=== PATIENT | male | born 1950 | race African-American/Black ===

== ENCOUNTER 2017-06-07 08:12 | Emergency (ER) | payer OTHER, BC ==
[2017-06-07] MEDS ORDERED: ACETAMINOPHEN 325 MG TABLET PO ONE (08:17)
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
[2017-06-07] MEDS ORDERED: HYDROCODONE/ACETAMINOPHEN 5-325 MG TABLET PO ONE (09:24)
[2017-06-07] MEDS ORDERED: OXYCODONE HCL IR 5 MG TABLET PO ONE (09:28)
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
[2017-06-07 10:19] VITALS: BP 134/66
== END 2017-06-07 10:28 | disposition home or self-care (01) ==
LOC: ER 08:12
PROC: 2W3DX1Z Immobilization of Left Lower Arm using Splint (ICD-10-PCS; principal; 2017-06-07)
DX: S52.572A Other intraarticular fracture of lower end of left radius, initial encounter for closed fracture (principal); M79.1 Myalgia; E11.9 Type 2 diabetes mellitus without complications; Z87.442 Personal history of urinary calculi; V89.2XXA Person injured in unspecified motor-vehicle accident, traffic, initial encounter
CPT/HCPCS: 99283

== ENCOUNTER 2018-07-03 04:09 | Emergency (ER) | payer BC ==
--- NOTE | 2018-07-03 05:21 | ER Document Report ---
ED General Pain - General Chief Complaint: Low Back Pain Stated Complaint: BACK PAIN Time Seen by Provider: 07/03/18 05:07 Primary Care Provider: MARIA GUADALUPE WOLF MD [Primary Care Provider] - Follow up as needed Mode of Arrival: Ambulatory Information source: Patient TRAVEL OUTSIDE OF THE [place] IN LAST 30 DAYS: No - HPI Notes: Patient is a 68-year-old male that presents to the emergency department with chief complaint of right hip pain. Patient reports that at times the right hip pain radiates down into his toes. Sometimes his toes will go numb and it "feels like needles." Patient reports that symptoms have been intermittent over the past 1-2 weeks and worse yesterday. Patient denies recent injury or fall. Patient reports normal urination and bowel movements. Patient reports the pain as a sharp and sometimes achy feeling. Patient states nothing makes the pain better or worse. Patient has attempted to take an [id number] pain medication called Max without relief. - Related Data Allergies/Adverse Reactions: No Known Allergies Allergy (Verified 09/19/14 11:32) Past Medical History - General Information source: Patient - Social History Smoking Status: Never Smoker Frequency of alcohol use: Daily Family History: Reviewed & Not Pertinent Patient has suicidal ideation: No Patient has homicidal ideation: No - Past Medical History Cardiac Medical History: Reports: Hx Hypertension Pulmonary Medical History: Reports: None EENT Medical History: Reports: None Neurological Medical History: Reports: None Endocrine Medical History: Reports: Hx Diabetes Mellitus Type 2 Renal/ Medical History: Reports: Hx Benign Prostatic Hyperplasia, Hx Kidney Stones. Denies: Hx Peritoneal Dialysis Malignancy Medical History: Reports None GI Medical History: Reports: None Skin Medical History: Reports None Traumatic Medical History: Reports: None Past Surgical History: Reports: Hx Orthopedic Surgery - Lft Knee Repair; Lft Shoulder Repair. - Immunizations Hx Diphtheria, Pertussis, Tetanus Vaccination: Yes Review of Systems - Review of Systems Constitutional: See HPI EENT: No symptoms reported Cardiovascular: No symptoms reported Respiratory: No symptoms reported Gastrointestinal: No symptoms reported Genitourinary: No symptoms reported Male Genitourinary: No symptoms reported Musculoskeletal: See HPI Skin: No symptoms reported Hematologic/Lymphatic: No symptoms reported Neurological/Psychological: No symptoms reported Physical Exam - Vital signs Vitals: Temp Pulse Resp BP Pulse Ox 98.6 F 83 18 171/78 H 98 07/03/18 04:10 07/03/18 04:10 07/03/18 04:10 07/03/18 04:10 07/03/18 04:10 Interpretation: Hypertensive - General General appearance: Appears well, Alert In distress: Mild - Respiratory Respiratory status: No respiratory distress Chest status: Nontender Breath sounds: Normal Chest palpation: Normal - Cardiovascular Rhythm: Regular Heart sounds: Normal auscultation, S1 appreciated, S2 appreciated - Abdominal Distension: No distension Bowel sounds: Normal Tenderness: Nontender Organomegaly: No organomegaly - Extremities General lower extremity: Normal inspection - No swelling, ecchymosis, instability, deformity noted at the right hip joint. Mild tenderness to hip joint with palpation. Ambulated patient around room, limp noted due to patient report of pain. Hip: Normal, Nontender, Pain with ROM - When inspecting right hip, no palpable inguinal hernia or mass noted. Patient does have full range of motion but with mild pain that radiates down right leg.. No: Tender, Abrasion, Deformity, Dislocation, Ecchymosis, Instability, Laceration, Unable to bear weight, Other Calf: Normal, Nontender Course - Re-evaluation Re-evalutation: 07/03/18 07:19 Upon reevaluation patient denies right hip pain or right lower back pain. Patient able to move about freely on stretcher. Patient reports that this is how the symptoms have been over the past few weeks and do become intermittent. X-ray results were discussed with patient and x-ray read and reviewed as negative. Patient at time of discharge has full range of motion. Discussed elevated blood pressure. Patient reports that his blood pressure is only elevated when at his doctor's. He denies any medication for his elevated blood pressure. Directed patient to follow-up with primary care physician to have blood pressure rechecked. Verbalized understanding. This plan of care to include rest and prescribed NSAID. Informed patient do not take multiple NSAIDs at one time or on an empty stomach. He should to return if symptoms worsen. 07/03/18 07:25 - Vital Signs Vital signs: Temp Pulse Resp BP Pulse Ox 98.5 F 77 20 156/79 H 99 07/03/18 06:37 07/03/18 06:37 07/03/18 06:37 07/03/18 06:37 07/03/18 06:37 - Diagnostic Test Radiology reviewed: Reports reviewed Discharge - Discharge Clinical Impression: Hip pain Qualifiers: Laterality: right Qualified Code(s): M25.551 - Pain in right hip Condition: Stable Disposition: HOME, SELF-CARE Additional Instructions: Today you were seen for right hip pain, your x-ray was negative. Take the naproxen which is an NSAID as prescribed. Do not take more than 1 NSAID at the same time. Make sure you take this medication with food as it can upset your stomach. Rest. To the emergency department if you have any difficulty urinating, loss of bowel or bladder, or worsening of pain or your condition. Prescriptions: RX: Naproxen 250 mg PO BID PRN #14 tablet PRN Reason: Referrals: MARIA GUADALUPE WOLF MD [Primary Care Provider] - Follow up as needed
--- NOTE | 2018-07-03 05:56 | RADIOLOGY REPORT (SQ) ---
EXAM DESCRIPTION: XR HIP 2 OR MORE VIEWS COMPLETED DATE/TME: 07/03/2018 05:12 CLINICAL HISTORY: 68 years, Male, right hip pain COMPARISON: None. NUMBER OF VIEWS: Two TECHNIQUE: Two views of the right hip LIMITATIONS: None. FINDINGS: There is no acute fracture or dislocation. The hip and sacroiliac joints appear intact. The pubic symphysis is intact. Vascular calcifications are noted. IMPRESSION: No acute fracture or dislocation copyright 2010 [employer]- All Rights Reserved
[2018-07-03 06:37] VITALS: BP 156/79
== END 2018-07-03 06:40 | disposition home or self-care (01) ==
LOC: ER 04:09
DX: M25.551 Pain in right hip (principal); M54.5 Low back pain; I10 Essential (primary) hypertension; E11.9 Type 2 diabetes mellitus without complications
CPT/HCPCS: 99283